=== PATIENT | female | born 1960 | race Caucasian/White ===

== ENCOUNTER 2016-07-20 06:59 | Day surgery (SDC) | payer BC, OTHER ==
[2016-07-19 11:21] VITALS: BMI 29.2
[2016-07-20 07:19] LABS: URINE APPEARANCE CLEAR; URINE BILIRUBIN NEGATIVE (NEGATIVE); URINE BLOOD NEGATIVE (NEGATIVE); URINE COLOR LTYELLOW; URINE GLUCOSE (UA) NEGATIVE (NEGATIVE); URINE KETONE NEGATIVE (NEGATIVE); URINE NITRITE NEGATIVE (NEGATIVE); URINE PROTEIN NEGATIVE (NEGATIVE); URINE UROBILINOGEN NEGATIVE E.U./dl (0.2-1.0)
[2016-07-20 07:22] LABS: URINE LEUK ESTERASE TRACE (NEGATIVE)
[2016-07-20] MEDS ORDERED: LIDOCAINE HCL 1%, 10 MG/ML (20ML VIAL) ONE (07:23)
[2016-07-20] MEDS ORDERED: BUPIVACAINE HCL/PF 0.5% (5MG/ML) 10 ML VIAL ONE (07:23)
[2016-07-20 07:33] LABS: URINE BACTERIA RARE /hpf (NONE SEEN); URINE MUCUS RARE; URINE RBC 1 /hpf (0-3); URINE WBC 2 /hpf (3-5)
[2016-07-20] MEDS ORDERED: PROPOFOL 20 ML ONE (08:09)
[2016-07-20] MEDS ORDERED: LIDOCAINE HCL/PF 2% SDV 5ML VIAL ONE (08:09)
[2016-07-20] MEDS ORDERED: MIDAZOLAM HCL 2 MG/2 ML SINGLE DOSE VIAL ONE (08:09)
[2016-07-20] MEDS ORDERED: SUCCINYLCHOLINE CHLORIDE 200 MG/10 ML VIAL ONE (08:10)
[2016-07-20] MEDS ORDERED: DESFLURANE GAS 240 ML BOTTLE IH ONE (08:12)
--- NOTE | 2016-07-20 08:22 | HP ---
Satellite [facility] - Chief Complaint Chief Complaint: right hand pain/numbness - Past Medical History Allergies/Adverse Reactions: Allergies Allergy/AdvReac Type Severity Reaction Status Date / Time amoxicillin [Amoxicillin] Allergy Mild Rash Verified 07/20/16 07:23 codeine AdvReac Intermediate Verified 07/20/16 07:23 ...LMP Comment: mar 2016 - Current Medications Current Medications: Home Medications Medication Instructions Recorded Amlodipine Besylate 5 mg PO DAILY 07/19/16 Hydrochlorothiazide [Hctz -] 12.5 mg PO DAILY 07/19/16 Multivitamins [Multivit ([facility] 1 tab PO DAILY 07/19/16 Formulary)] Hydrocodone/Acetaminophen [[place] 1 - 2 each PO Q6H #30 tablet MDD 8 07/20/16 5-325 Tablet] Satellite Physical Exam - Physical Examination Vital Signs: Vital Signs Period Temp Pulse Resp BP Sys/Allen Pulse Ox Last 24 Hr 97.6 F-97.6 F 72-72 20-20 139-139/103-103 98 General Appearance: Well Nourished, Well Developed, Alert & Oriented x3 ENT: Clear Lung: Normal air movement Heart: Regular rate & rhythm Extremities: Other (right hand- + tinels, +phalens emg + cts) Neurological: Intact, Alert, Oriented Satellite Impression/Plan - Impression/Plan Impression: right cts Operative Procedure: right ctr Date to be Performed: 07/20/16
[2016-07-20] MEDS ORDERED: CLINDAMYCIN 600 MG PREMIX BAG IVPB ONE (08:30)
[2016-07-20] MEDS ORDERED: BUPIVACAINE HCL/PF (5 MG/ML) 30 ML VIAL IJ ONE ×2 (08:45)
[2016-07-20] MEDS ORDERED: LIDOCAINE HCL 1%, 10 MG/ML (20ML VIAL) IJ ONE ×2 (08:45)
--- NOTE | 2016-07-20 09:05 | OP ---
Operative Note - Note: Operative Date: 07/20/16 Pre-Operative Diagnosis: right CTS Operation: right CTR Post-Operative Diagnosis: Same as Pre-op Surgeon: Klever Marin Anesthesiologist/MANAGER [employer]: Fartun Knox Anesthesia: General, Local Specimens Removed: tenosynovium Estimated Blood Loss (mls): 0 Blood Volume Replaced (mls): 0 Fluid Volume Replaced (mls): 500 Operative Report Dictated: Yes
[2016-07-20] MEDS ORDERED: oxyCODONE HCL 5 MG TABLET PO PRN (09:39)
[2016-07-20] MEDS ORDERED: ONDANSETRON 4 MG/2 ML VIAL IVPUSH PRN (09:39)
[2016-07-20] MEDS ORDERED: LACTATED RINGERS SOLUTION 1,000 ML IV SCH (09:45)
[2016-07-20 10:48] VITALS: TEMP 97.5
[2016-07-20] MEDS ORDERED: ACETAMINOPHEN 1000 MG/100 ML VIAL (NON FORMULARY) IVPB ONE (12:31)
[2016-07-20 14:46] VITALS: BP 124/83; PULSE 64
--- NOTE | 2016-07-21 12:30 | PATH ---
Surgical Pathology Report Patient Name: MARTHA WHEELER [facility]. Rec. #: [id number] /Age/Gender: 1960 (Age: 56) / F Account: [id number] Location: [facility] SURGICAL Taken: 07/20/2016 Received: 07/20/2016 Reported: 07/21/2016 Physicians: John Tse M.D. Specimen(s) Received SYNOVIUM Clinical History Right carpal tunnel syndrome Final Diagnosis TENOSYNOVIUM, RIGHT CARPAL TUNNEL RELEASE: BENIGN TENOSYNOVIAL FIBROCONNECTIVE TISSUE WITH MYXOID DEGENERATION. Electronically Signed Moshe Amaya M.D. Gross Description Received in formalin labeled "tenosynovial fluid" is a 2.0 x 1.6 x 0.3 cm aggregate of santamaria-yellow, irregular portions of soft tissue, consistent with tenosynovium. The specimen is submitted in toto in one cassette. 07/20/201607/20/2016
--- NOTE | 2016-07-21 13:13 | SPEC ---
DATE OF OPERATION: 07/20/2016 PREOPERATIVE DIAGNOSIS: Right carpal tunnel syndrome. POSTOPERATIVE DIAGNOSIS: Right carpal tunnel syndrome. PROCEDURE PERFORMED: Right carpal tunnel release and tenosynovectomy. SURGEON: Elliot Cristina MD ASSISTANTS: Klever Marin MD; Fartun Knox CRNA ANESTHESIA: MAC anesthesia. Local injection of 12 mL of 0.5% Marcaine and 1% lidocaine mix. DRAINS: None. COMPLICATIONS: None. SPECIMEN: Tenosynovium right wrist. BLOOD LOSS: Minimal. BLOOD GIVEN: None. FLUID REPLACEMENT: 500 mL. INDICATIONS: The patient is a 56-year-old female with preoperative diagnosis of right carpal tunnel syndrome. After understanding the potential risks, complications, alternatives and benefits of surgery, and the risks of nonsurgical treatment, the patient elected to undergo this procedure. She understands she will continue for 6 months and it is possible that not all of her symptoms will go away. PROCEDURE: The patient was brought to the operating room, peripheral IV placed, and IV sedation given. She was given 600 mg of clindamycin. MAC anesthesia was induced. A tourniquet was applied to the right upper arm and the right upper extremity was prepped and draped in sterile fashion. The entire case was done under 3.8 loupe magnification. A marking pen was utilized to brittny out a longitudinal incision in an already existing skin crease. Twenty mL of 0.5% Marcaine mixed with 1% Lidocaine was injected in and around the surgical incision. The right upper extremity was elevated, exsanguinated with an Esmarch bandage and the tourniquet inflated to 250 mmHg. A No. 15 scalpel blade was utilized to cut down through the skin. Subcutaneous hemostasis was achieved with the bipolar cautery. Dissection was done through the superficial palmar fascia. Self-retaining retractors were placed into the wound. Under direct visualization, the transverse carpal ligament was transected with a No. 15 scalpel blade, exposing the median nerve and the contents of the carpal tunnel. The distal and proximal extents of the release were completed with a Littler scissor and checked with irrigation and my small finger. They were seen to be complete. Limited dissection was done on the radial side of the median nerve and more extensive dissection was done on the ulnar side of the median nerve. The patients nerve was seen to be quite compressed by epineurium and therefore a limited epineurotomy was performed. A Ragnell retractor was used to gently retract the median nerve in a radial direction. The patient had a lot of tenosynovitis and therefore a tenosynovectomy was performed off all 9 flexor tendons. This was passed off the field as tenosynovium right wrist. The floor of the carpal tunnel was checked. There were no abnormal masses or ganglion cysts. The area was copiously irrigated and washed out and closure begun. Undyed 4-0 Vicryl was used to close the deep dermal layer. Final skin reapproximation was done with horizontal mattress 4-0 nylon sutures. The area was then washed and dried, covered with Xeroform, 4x4s, fluffs between the fingers, Webril and a 4-inch plaster roll was utilized to make a volar splint, which was then wrapped with Montse and Coban. The tourniquet was taken down after a total tourniquet time of 20 minutes. There were no complications during the case. The patient tolerated the procedure well and was brought to the ambulatory recovery room in stable condition. Klever Marin MD dictating for MD ELLIOT Granda M.D. [id number]
== END 2016-07-20 14:47 | disposition home or self-care (01) ==
LOC: JASU-SURG 06:59
PROVIDERS: ATTEND Orthopaedic Surgery
PROC: 01N50ZZ Release Median Nerve, Open Approach (ICD-10-PCS; principal; 2016-07-20 08:00)
DX: G56.01 Carpal tunnel syndrome, right upper limb (principal)
CPT/HCPCS: 81003; 81015; 84703; 88304-TC; 94760